=== PATIENT | female | born 1980 | race Asian ===

== ENCOUNTER 2017-05-21 11:52 | Emergency (ER) | payer OTHER ==
[~2017-05-21] VITALS: Ht 162.6 cm; Wt 56.0 kg
[2017-05-21 13:06] LABS: HEMATOCRIT 44.4 % (34.6-47.8); HEMOGLOBIN 14.6 g/dL (11.7-16.4); WHITE BLOOD COUNT 6.3 x10^3/uL (3.4-10)
[2017-05-21 13:11] LABS: BLOOD UREA NITROGEN 7 mg/dL (7-18)
[2017-05-21 13:17] LABS: ASPARTATE AMINO TRANSFERASE 12 U/L (15-37)
[2017-05-21 13:23] LABS: IS PT STATUS REG ER OR PRE ER? YES
[2017-05-21 13:55] VITALS: BP 111/78
== END 2017-05-21 13:57 | disposition home or self-care (01) ==
LOC: ED 13:32
DX: R07.89 Other chest pain (principal)
CPT/HCPCS: 36415; 71010; 80053; 83735; 84443; 84484; 84703; 85025; 93005; 99285

== ENCOUNTER 2019-06-11 08:38 | Outpatient (CLI) | payer BC, OTHER ==
[2019-06-11] MEDS ORDERED: VENL37.57 PO (09:24)
[2019-06-11] MEDS ORDERED: MULT-252 PO (09:24)
[2019-06-11] MEDS ORDERED: [UNRECOGNIZED DRUG - OTHER] PO (09:24)
[2019-06-11] MEDS ORDERED: VITAMIN E PO (09:24)
== END 2019-06-11 23:59 | disposition home or self-care (01) ==
LOC: STAR 08:38
PROVIDERS: ATTEND Surgery
DX: Z02.9 Encounter for administrative examinations, unspecified (principal)

== ENCOUNTER 2019-06-18 05:52 | Day surgery (SDC) | payer BC, OTHER ==
[~2019-06-18] VITALS: Ht 162.6 cm; Wt 56.9 kg
[~2019-06-18 05:52] MED LIST: MULT-252 PO; VENL37.57 PO; VITAMIN E PO; [UNRECOGNIZED DRUG - OTHER] PO
[2019-06-18] MEDS ORDERED: LACTATED RINGERS 1,000 ML IV SCH (06:52)
[2019-06-18 06:54] VITALS: BP 112/79
[2019-06-18] MEDS ORDERED: EPINEPHRINE 1 MG/ML, 1ML ONE (07:09)
[2019-06-18] MEDS ORDERED: BUPIVACAINE/PF 0.5% ONE (07:09)
[2019-06-18] MEDS ORDERED: FENTANYL PF 250 MCG/5ML ONE (07:55)
[2019-06-18] MEDS ORDERED: GABAPENTIN 300 MG CAPSULE ONE (07:55)
[2019-06-18] MEDS ORDERED: MIDAZOLAM 1 MG/ML, 2ML ONE (07:55)
[2019-06-18] MEDS ORDERED: SCOPOLAMINE PATCH, 1.5MG PATCH.TD72 TD ONE ×2 (07:56→08:00)
[2019-06-18] MEDS ORDERED: ACETAMINOPHEN 500 MG TABLET ONE (07:56)
[2019-06-18] MEDS ORDERED: ACETAMINOPHEN 500 MG TABLET PO ONE (08:00)
[2019-06-18] MEDS ORDERED: GABAPENTIN 300 MG CAPSULE PO ONE (08:00)
[2019-06-18 08:04] LABS: HCG UR SG 1.024 (1.003-1.030)
[2019-06-18] MEDS ORDERED: KETOROLAC 30 MG/1 ML ONE (08:08)
[2019-06-18] MEDS ORDERED: LIDOCAINE-MPF 2% ,5ML ONE (08:08)
[2019-06-18] MEDS ORDERED: EPHEDRINE 50 MG/ML, 1ML ONE (08:08)
[2019-06-18] MEDS ORDERED: OXYcodone 5 MG/5 ML ORAL.SOL UDC PO PRN (08:30)
[2019-06-18] MEDS ORDERED: ALBUTEROL/IPRATROPIUM 2.5MG/0.5MG, 3 ML NPPB PRN (08:30)
[2019-06-18] MEDS ORDERED: HYDROmorphone 2 MG/ML, 1ML IVPush PRN (08:30)
[2019-06-18] MEDS ORDERED: MIDAZOLAM 1 MG/ML, 2ML IV PRN (08:30)
[2019-06-18] MEDS ORDERED: FENTANYL PF 100 MCG/2ML IV PRN (08:30)
[2019-06-18] MEDS ORDERED: METOPROLOL 1 MG/ML, 5ML IV PRN (08:30)
[2019-06-18] MEDS ORDERED: PROMETHAZINE 25 MG/ML, 1ML IV PRN (08:30)
[2019-06-18] MEDS ORDERED: MEPERIDINE/PF 25MG/ML,1ML IVPush PRN (08:30)
[2019-06-18] MEDS ORDERED: hydrALAzine 20 MG/ML, 1ML IV PRN (08:30)
[2019-06-18] MEDS ORDERED: DEXAMETHASONE 4 MG/ML, 1ML ONE (08:52)
[2019-06-18] MEDS ORDERED: CEFAZOLIN 1,000 MG ONE (08:52)
[2019-06-18] MEDS ORDERED: ONDANSETRON 2MG/ML, 2ML ONE (08:52)
[2019-06-18] MEDS ORDERED: PROPOFOL 10 MG/ML, 20ML ONE (08:52)
== END 2019-06-18 11:30 | disposition home or self-care (01) ==
LOC: OUT 05:52
PROVIDERS: ATTEND Surgery
DX: K40.90 Unilateral inguinal hernia, without obstruction or gangrene, not specified as recurrent (principal); F32.9 Major depressive disorder, single episode, unspecified; Z79.899 Other long term (current) drug therapy; Z88.8 Allergy status to other drugs, medicaments and biological substances
CPT/HCPCS: 49505; 81025; C1781; J0171; J0690; J1100; J1885; J2250; J2405; J2704; J3010; J7120